=== PATIENT | male | born 1965 | race Caucasian/White ===

== ENCOUNTER 2018-09-15 03:28 | Emergency (ER) | payer OTHER ==
[~2018-09-15] VITALS: Ht 182.9 cm; Wt 102.3 kg
[~2018-09-15 03:28] MED LIST: KLONOPIN1 MG PO; LEXAPRO20 MG PO; TESTOSTERON200 MG/ML IM
[2018-09-15 03:37] VITALS: Ht 182.9 cm; Wt 102.3 kg
[2018-09-15 04:44] LABS: BASOPHILS 0.4 % (0-2); EOSINOPHILS 8.5 % (0-7); HEMATOCRIT 45.9 % (42.0-54.0); HEMOGLOBIN 16.3 g/dL (13.5-17.5); IMMATURE GRANULOCYTES 0.3 % (0-5); LYMPHOCYTES 31.8 % (15-50); MCH 34.8 pg (26.0-34.0); MCHC 35.5 g/dL (31.0-37.0); MCV 97.9 fL (80.0-100.0); MEAN PLATELET VOLUME 9.5 fL (7.4-10.4); MONOCYTES 7.4 % (2-11); NEUTROPHILS 51.6 % (40-80); PLATELET COUNT 205 10x3/uL (130-400); RBC 4.69 10x6/uL (4.20-6.10); RDW 12.7 % (11.5-14.5); WBC 7.9 10x3/uL (4.8-10.8)
[2018-09-15 04:55] LABS: CALC OSMOLALITY 279 mosm/kg (275-300); CALCIUM 8.5 mg/dL (8.5-10.1); CARBON DIOXIDE 24.1 mmol/L (21.0-32.0); CHLORIDE - SERUM 102 mmol/L (98-107); CREATININE - SERUM 0.9 mg/dL (0.6-1.3); GLUCOSE 140 mg/dL (74-106); POTASSIUM - SERUM 4.4 mmol/L (3.5-5.1); SODIUM 138 mmol/L (136-145); UREA NITROGEN 17 mg/dL (7-18); eGFR NON AFRICAN AMERICAN > 90 mL/min (90-120)
[2018-09-15] MEDS ORDERED: CYCLOBENZAPRINE10 MG PO (05:13)
[2018-09-15] MEDS ORDERED: AUGMENTIN 875-11 TAB PO (05:13)
[2018-09-15] MEDS ORDERED: ACETAMINOPHEN500 M1 PO (05:13)
[2018-09-15 06:14] VITALS: BP 112/76
[2018-09-15] MEDS ORDERED: IBUPROFEN800 MG PO (06:21)
== END 2018-09-15 06:23 | disposition home or self-care (01) ==
LOC: D.ER 03:28
PROVIDERS: Family Medicine
DX: S43.005A Unspecified dislocation of left shoulder joint, initial encounter (principal); Y93.89 Activity, other specified; Y92.013 Bedroom of single-family (private) house as the place of occurrence of the external cause